=== PATIENT | male | born 1965 | race American Indian/Alaskan Native ===

== ENCOUNTER 2018-07-11 21:44 | Inpatient (IN) | payer OTHER, MEDICAID ==
[2018-07-11] MEDS ORDERED: Sodium Chloride 0.9% 1,000 ML IV STA (22:01)
--- NOTE | 2018-07-11 22:05 | ED PDOC ---
Arrival/HPI - General Time Seen by Provider: 07/11/18 21:51 Historian: Patient - History of Present Illness Narrative History of Present Illness (Text): 07/11/18 21:59 52 year old male, whose past medical history includes hypertension, presents to the emergency department complaining of dizziness, headache, and near syncopal episodes, this morning. Patient informs of intermittent dizziness all day. Patient states he took his hypertension medication which did not help. Patient states he ate tonight and vomited. Patient informs he feels weak and not well. Patient denies any abdominal pain, diarrhea, fever, chills, chest pain, shortness of breath, back pain, neck pain, or any other complaints. Time/Duration: Prior to Arrival, 24 hours Symptom Onset: Gradual Symptom Course: Unchanged Activities at Onset: Light Context: Home Past Medical History - Provider Review Nursing Documentation Reviewed: Yes - Infectious Disease Hx of Infectious Diseases: None - Tetanus Immunization Tetanus Immunization: Unknown - Pulmonary Hx Sleep Apnea: Yes - Psychiatric Hx Substance Use: No - Anesthesia Hx Anesthesia: No Family/Social History Family/Social History: No Known Family HX Smoking Status: Never Smoked Hx Alcohol Use: No Hx Substance Use: No Allergies/Home Meds Allergies/Adverse Reactions: Allergies No Known Allergies Allergy (Verified 08/30/15 22:03) Review of Systems - Physician Review All systems were reviewed & negative as marked: Yes - Review of Systems Constitutional: absent: Fevers, Night Sweats Respiratory: absent: SOB Cardiovascular: absent: Chest Pain Gastrointestinal: Nausea, Vomiting. absent: Abdominal Pain, Diarrhea Musculoskeletal: absent: Back Pain, Neck Pain Neurological: Headache, Dizziness Physical Exam Vital Signs Reviewed: Yes Temperature: Afebrile Blood Pressure: Normal Pulse: Regular Respiratory Rate: Normal Appearance: Positive for: Well-Appearing, Non-Toxic, Comfortable Pain Distress: None Mental Status: Positive for: Alert and Oriented X 3 - Systems Exam Head: Present: Atraumatic, Normocephalic Pupils: Present: PERRL Extroacular Muscles: Present: EOMI Conjunctiva: Present: Normal Ears: Present: NORMAL TM Mouth: Present: Moist Mucous Membranes Pharnyx: Present: Normal Neck: Present: Normal Range of Motion Respiratory/Chest: Present: Clear to Auscultation, Good Air Exchange. No: Respiratory Distress, Accessory Muscle Use Cardiovascular: Present: Regular Rate and Rhythm, Normal S1, S2. No: Murmurs Abdomen: No: Tenderness, Distention, Peritoneal Signs Back: Present: Normal Inspection Upper Extremity: Present: Normal Inspection. No: Cyanosis, Edema Lower Extremity: Present: Normal Inspection. No: Edema Neurological: Present: GCS=15, CN II-XII Intact, Speech Normal, Motor Func Grossly Intact, Normal Sensory Function Skin: Present: Warm, Dry, Normal Color. No: Rashes Psychiatric: Present: Alert, Oriented x 3, Normal Insight, Normal Concentration Medical Decision Making ED Course and Treatment: 07/11/18 22:07 Impression: 52 year old male presents with dizziness and vomiting Plan: -- CT Head -- EKG -- CMP, Lipase, Cardiac iso -- CBC, Prothrombin -- Chest X-ray -- Pepcid -- Zofran -- Reassess and disposition Prior Visits: Notes and results from previous visits were reviewed. Progress Notes: 07/11/18 22:20 EKG reviewed by me, shows: Normal sinus rhythm @ 63bpm LVH, Non-specific T-wave changes. 07/11/18 23:29 Chest X-ray reviewed by me, shows: No acute process 07/11/18 23:44 CT Head without Intravenous Contrast. CLINICAL HISTORY: HEADACHE - DIZZY TECHNIQUE: Axial computed tomography images of the head/brain without intravenous contrast. 1045.36 mGy-cm COMPARISON: None provided. FINDINGS: BRAIN There are bilateral basal ganglia calcifications. No evidence for acute intracranial hemorrhage. VENTRICLES: There is asymmetry of the frontal horns of the lateral ventricles. While this may be a normal variant, it is difficult to exclude a small underlying mass in this region. Please correlate clinically and if indicated this could be further evaluated with contrast enhanced MRI. ORBITS: The orbits are unremarkable. SINUSES AND MASTOIDS: The paranasal sinuses and mastoid air cells are clear. BONES: No fracture. SOFT TISSUES: Unremarkable. MISCELLANEOUS: No evidence for acute territorial infarction. IMPRESSION: 1. There is asymmetry of the frontal horns of the lateral ventricles. While this may be a normal variant, it is difficult to exclude a small underlying mass in this region. Please correlate clinically and if indicated this could be further evaluated with contrast enhanced MRI. 2. No evidence for acute territorial infarction. 3. No evidence for acute intracranial hemorrhage. 07/12/18 00:[address] Cruz who requests Dr Nicole on consult, and requests patient undergo MRI with contrast in the morning, as suggested by radiologist. - Scribe Statement The provider has reviewed the documentation as recorded by the Scribe Feroz Pacheco Provider Scribe Attestation: All medical record entries made by the Scribe were at my direction and personally dictated by me. I have reviewed the chart and agree that the record accurately reflects my personal performance of the history, physical exam, medical decision making, and the department course for this patient. I have also personally directed, reviewed, and agree with the discharge instructions and disposition. Disposition/Present on Arrival - Present on Arrival Any Indicators Present on Arrival: No History of DVT/PE: No History of Uncontrolled Diabetes: No Urinary Catheter: No History of Decub. Ulcer: No History Surgical Site Infection Following: None - Disposition Have Diagnosis and Disposition been Completed?: Yes Diagnosis: Near syncope, Dizziness Disposition: HOSPITALIZED Disposition Time: 00:10 Patient Problems: Current Active Problems Problem Status Onset Dizziness Acute Near syncope Acute Condition: STABLE
[2018-07-11 22:06] VITALS: BMI 32.5
[2018-07-11 22:23] LABS: HEMOGLOBIN 15.3 g/dL (14.0-18.0); MEAN CELL VOLUME 91.4 fl (80.0-105.0); MEAN CORPUSCULAR HEMOGLOBIN 31.5 pg (25.0-35.0); MEAN CORPUSCULAR HGB CONC 34.5 g/dl (31.0-37.0); MEAN PLATELET VOLUME 10.2 fl (7.0-11.0); RBC 4.86 10^6/uL (3.5-6.1); RED CELL DISTRIBUTION WIDTH 13.6 % (11.5-14.5); WHITE BLOOD COUNT 9.5 10^3/uL (4.5-11.0)
[2018-07-11 22:33] LABS: ALBUMIN 4.6 g/dL (3.0-4.8); ALT/SGPT 42 U/L (7-56); AST/SGOT 36 U/L (17-59); BLOOD UREA NITROGEN 9 mg/dL (7-21); CALCIUM 9.7 mg/dL (8.4-10.5); GFR NON-AFRICAN AMERICAN > 60; INR 1.06; LIPASE 61 U/L (23-300); PROTHROMBIN TIME 11.8 SECONDS (9.4-12.5)
[2018-07-11 22:44] LABS: TROPONIN I < 0.01 ng/mL
[2018-07-11] MEDS ORDERED: Potassium Chloride 20 mEq ER Tab PO STA (23:48)
[2018-07-12] MEDS ORDERED: Sodium Chloride 0.9% 1,000 ML IV STA (00:03)
[2018-07-12] MEDS ORDERED: Influenza Vaccine 60 mcg/0.5 mL SYR (4YR UP) IM ONE (02:05)
[2018-07-12 07:14] LABS: TROPONIN I < 0.01 ng/mL
--- NOTE | 2018-07-12 09:22 | RAD ---
Date of service: 07/11/2018 HISTORY: dizzy COMPARISON: No prior. FINDINGS: LUNGS: Poor inspiration with low lung volumes, crowded bronchovascular markings and mild bibasilar atelectasis. PLEURA: No significant pleural effusion identified, no pneumothorax apparent. CARDIOVASCULAR: No aortic atherosclerotic calcification present. Heart appears enlarged. No pulmonary vascular congestion. OSSEOUS STRUCTURES: No significant abnormalities. VISUALIZED UPPER ABDOMEN: Normal. OTHER FINDINGS: None. IMPRESSION: Poor inspiration with low lung volumes, crowded bronchovascular markings and mild bibasilar atelectasis.
--- NOTE | 2018-07-12 09:23 | CT ---
Date of service: 07/11/2018 PROCEDURE: CT HEAD WITHOUT CONTRAST. HISTORY: headache/dizzy COMPARISON: None available. TECHNIQUE: Axial computed tomography images were obtained through the head/brain without intravenous contrast. Radiation dose: Total exam DLP = 1045.36 mGy-cm. This CT exam was performed using one or more of the following dose reduction techniques: Automated exposure control, adjustment of the mA and/or kV according to patient size, and/or use of iterative reconstruction technique. FINDINGS: HEMORRHAGE: No intracranial hemorrhage. BRAIN: No mass effect or edema. No atrophy or chronic microvascular ischemic changes. VENTRICLES: Unremarkable. No hydrocephalus. CALVARIUM: Unremarkable. PARANASAL SINUSES: Unremarkable as visualized. No significant inflammatory changes. MASTOID AIR CELLS: Unremarkable as visualized. No inflammatory changes. OTHER FINDINGS: None. IMPRESSION: Normal CT of the Head.
--- NOTE | 2018-07-12 11:29 | CARD ---
APPROVED REPORT Date of service: 07/11/2018 EKG Measurement Heart [id number] <Conclusion> Normal sinus rhythm Possible Left atrial enlargement RSR' or QR pattern in V1. Left ventricular hypertrophy ST-T Changes.
[2018-07-12] MEDS ORDERED: Potassium Chl 20mEq & D5W 1,000 ML IV SCH (20:45)
--- NOTE | 2018-07-12 20:56 | US ---
PROCEDURE: Bilateral carotid artery duplex ultrasound HISTORY: Carotid stenosis PHYSICIAN(S): Feroz Avila MD. TECHNIQUE: Duplex sonography and color-flow Doppler were used to evaluate the carotid bifurcations and limited segments of the vertebral arteries bilaterally. FINDINGS: There is mild smooth hypoechoic plaque noted at the carotid bifurcations bilaterally. The peak systolic velocity in the proximal right internal carotid artery is 66 cm/sec. This corresponds to a 20 to 39% proximal right ICA stenosis. Normal systolic velocities are noted in the proximal right external carotid artery. There is antegrade flow in the right vertebral artery. The peak systolic velocity in the proximal left internal carotid artery is 72 cm/sec. This corresponds to a 20 to 39% proximal left ICA stenosis. Normal systolic velocities are noted in the proximal left external carotid artery. There is antegrade flow in the left vertebral artery. IMPRESSION: 1. Bilateral 20-39% proximal ICA stenoses. 2. Antegrade flow in both vertebral arteries.
[2018-07-12] MEDS ORDERED: Potassium Chloride 20 mEq 100 ML IV ONE (21:00)
[2018-07-12 21:16] LABS: HDL CHOLESTEROL 48 mg/dL (29-60)
[2018-07-12 21:23] LABS: IRON 97 ug/dL (45-180)
[2018-07-12 21:27] LABS: LDL CHOLESTEROL 121 mg/dL (0-129)
[2018-07-12 21:28] LABS: TROPONIN I < 0.01 ng/mL
[2018-07-12] MEDS: Dextrose 5%/0.9% NS 1,000 ML IV SCH (21:42)
[2018-07-12 21:45] LABS: % IRON SATURATION 75 % (20-55); TOTAL IRON BINDING CAPACITY 130 ug/dL (261-462)
--- NOTE | 2018-07-12 23:14 | CON ---
DATE: 07/12/2018 HISTORY OF PRESENT ILLNESS: This is a 52-year-old black male with past medical history of hypertension and came to the emergency room with dizziness, headache, and syncopal episode, yesterday had intermittently feeling dizzy all day. The patient has vomited and now this morning he took some clear liquid and also again vomited and also felt weak and no fever, no abdominal pain, and no shortness of breath. PAST MEDICAL HISTORY: Not significant. ALLERGIES: NO KNOWN DRUG ALLERGY. SOCIAL HISTORY: Does not smoke and does not drink. REVIEW OF SYSTEMS: A 10-point review of systems was negative except headache and dizziness. PHYSICAL EXAMINATION: HEENT: Normocephalic and atraumatic. NECK: Supple. NEUROLOGIC: Alert, awake, and oriented x3. No aphasia. Cranial nerves II through XII were tested. Pupils reactive. EOMs intact. Visual field full. No facial asymmetry. Tongue midline. Motor examination moves all the extremities equally and spontaneously. Deep tendon reflexes 1. Plantars downgoing. Sensory appears intact. Cerebellar gait deferred. IMPRESSION: Syncope and vertigo, possibly benign positional. PLAN: We will do the MRI of the head and continue present management. CAT scan of the head was done, which was reported negative. We will follow up. Amarjit Nicole MD
[2018-07-13 00:09] LABS: URINE BILIRUBIN NEGATIVE (NEGATIVE); URINE BLOOD NEGATIVE (NEGATIVE); URINE GLUCOSE (UA) NEGATIVE (NEGATIVE); URINE LEUKOCYTE ESTERASE NEGATIVE Leu/uL (NEGATIVE); URINE PROTEIN TRACE mg/dL (<30 mg/dL); URINE UROBILINOGEN 0.2 E.U./dL (<1 E.U./dL)
[2018-07-13 00:12] LABS: URINE APPEARANCE CLEAR (CLEAR); URINE COLOR YELLOW (YELLOW)
[2018-07-13 01:07] LABS: URINE EPITHELIAL CELLS 0 - 2 /hpf (0-5); URINE WBC 0 - 2 /hpf (0-6)
[2018-07-13 01:08] LABS: URINE BACTERIA FEW /hpf
--- NOTE | 2018-07-13 04:27 | HP ---
DATE OF EXAM: <> CHIEF COMPLAINT: Dizziness, headache, near syncope. HISTORY OF PRESENT ILLNESS: Mr. Kathy Acosta is a 52-year-old male with past medical history of hypertension, came to the emergency department complaining of dizziness, headache, near syncopal episode. The patient inform of intermittent dizziness all days. The patient states that today he took his hypertension medication which did not help. The patient states that he ate tonight and vomited, feeling tired. Feeling nauseous and vomitus. No fever. No chills. No hematuria. No hematochezia. All this symptoms was prior to arrival. PAST MEDICAL HISTORY: Sleep apnea, hypertension. FAMILY HISTORY: Father and mother, noncontributory. HABITS: Never smoked. No drug. No ethanol. ALLERGIES: THE PATIENT IS NOT ALLERGIC WITH ANY MEDICATIONS. REVIEW OF SYSTEMS: The patient was seen and examined at the bedside, looking comfortable. No fever. No chills. No hematuria. No hematochezia. Having headache. No shortness of breath at this moment. No night sweats. No chest pain. Feeling nauseous and vomiting. No diarrhea. No back pain. Having headache and dizziness. PHYSICAL EXAMINATION VITAL SIGNS: Temperature 97.5, pulse 68, blood pressure 159/96, respiratory rate 20. HEENT: Head is normocephalic, atraumatic. Eyes; PERRLA. Extraocular muscles intact. Conjunctivae clear. Nose patent. Mucous membranes moist. NECK: Supple. No carotid bruits. No JVD. No thyromegaly. CHEST: Bilateral symmetrical. HEART: S1, S2 positive. LUNGS: Clear to auscultation. ABDOMEN: Soft. Bowel sounds present. No organomegaly. EXTREMITIES: No edema. No cyanosis. NEUROLOGIC: The patient awake, alert, moving all four extremities. No focal deficits. LABORATORY DATA: White blood cell 6.5, hemoglobin 15.3, hematocrit 44.4, platelets 259. Sodium 140, potassium 3.3, BUN 9, creatinine 0.9, random glucose 159. ASSESSMENT AND PLAN: Mr. Kathy Acosta is a 52-year-old male with hypokalemia replaced, but still nauseous and vomiting. We will give him some IV potassium. Hyperglycemia, with headache and dizziness. Doppler of the neck, results are pending. Chest x-ray, poor inspiration with lung volumes of crowded bronchovascular marking and marked bibasilar atelectasis. Did CAT scan of the head last night. Today ordered MRI of the head without contrast. CAT scan of the head is normal as per radiologist. Neurology consult called with Dr. Nicole, started the patient on Antivert. Now, the patient was on clear liquid diet, but still today vomiting, nauseous, made the patient n.p.o., started on IV fluid. ENT consult called with Dr. Lorena Eckert. The patient has sleep apnea, will call pulmonary consult. Getting Zofran, Pepcid, aspirin. Potassium replaced. GI and DVT prophylaxis. Repeat labs. Antivert started. We will followup. Clarisa Cruz MD MTDD
[2018-07-13 07:25] LABS: HEMOGLOBIN 15.3 g/dL (14.0-18.0); MEAN CELL VOLUME 92.2 fl (80.0-105.0); MEAN CORPUSCULAR HEMOGLOBIN 31.2 pg (25.0-35.0); MEAN CORPUSCULAR HGB CONC 33.8 g/dl (31.0-37.0); MEAN PLATELET VOLUME 10.4 fl (7.0-11.0); RBC 4.9 10^6/uL (3.5-6.1); RED CELL DISTRIBUTION WIDTH 13.9 % (11.5-14.5); WHITE BLOOD COUNT 9.8 10^3/uL (4.5-11.0)
[2018-07-13 07:46] LABS: BLOOD UREA NITROGEN 13 mg/dL (7-21); CALCIUM 9.3 mg/dL (8.4-10.5); GFR NON-AFRICAN AMERICAN > 60
--- NOTE | 2018-07-13 11:41 | CP.PCM.CON ---
<Jan Estrada - Last Filed: 07/13/18 14:52> History of Present Illness - History of Present Illness History of Present Illness: PGY-4 GI fellow consult note Patient is a 52-year-old black male with a history of hypertension, VONNIE, reflux (on when necessary OTC medications only) presenting with lightheadedness and nausea/vomiting. He states around 07/11/18 he began to feel dizziness, lig htheaded feeling like the room spinning. states symptoms are worse when he moved his head from side to side; symptoms perhaps better when he closes his eyes. He states he took his blood pressure medications with relief of his symptoms. Later that day is he ate dinner for 10-15 minutes later he had nausea vomiting consisting of his by mouth intake. He denied any bloody or bilious emesis. He wonders if some salad that he ate may have made him sick. since admission, symptoms have persisted to the point that he has been unable to keep liquid diet down. He denied any fevers/chills, change in diet, lelia food consumption, recent travel, antibiotic use,abdominal pain, weight loss, dysphagia, melena, hematochezia.states he had an EGD and colonoscopy about 5 years ago at the [facility] and states that results were unremarkable. 12 point ROS negative other than stated above MHX: See above Surgical history: cyst removal Medications: Reviewed in chart Family history: Denied family history of GI problems Social history: denied 3 Allergies: No known drug allergies Past Patient History - Infectious Disease Hx of Infectious Diseases: None - Tetanus Immunizations Tetanus Immunization: Unknown - Past Social History Smoking Status: Never Smoked - CARDIAC Hx Cardiac Disorders: No Hx Angina: No Hx Cardia Arrhythmia: No Hx Circulatory Problems: No Hx Congestive Heart Failure: No Hx Heart Murmur: No Hx Heart Transplant: No Hx Hypercholesterolemia: No Hx Hypertension: Yes Hx Internal Defibrillator: No Hx Mitral Valve Prolapse: No Hx Pacemaker: No Hx Peripheral Edema: No Hx Peripheral Vascular Disease: No - PULMONARY Hx Sleep Apnea: Yes - MUSCULOSKELETAL/RHEUMATOLOGICAL Hx Falls: No - PSYCHIATRIC Hx Substance Use: No - SURGICAL HISTORY Hx Cardiac Catheterization: No Hx Coronary Stent: No - ANESTHESIA Hx Anesthesia: No Meds Allergies/Adverse Reactions: Allergies Allergy/AdvReac Type Severity Reaction Status Date / Time No Known Allergies Allergy Verified 08/30/15 22:03 - Medications Medications: Current Medications Aspirin (Ecotrin) 81 mg PO DAILY [facility] Last Admin: 07/13/18 09:16 Dose: 81 mg Famotidine (Pepcid) 40 mg PO HS [facility] Last Admin: 07/12/18 21:11 Dose: 40 mg Hydrochlorothiazide (Microzide) 12.5 mg PO DAILY [facility] Last Admin: 07/13/18 09:16 Dose: 12.5 mg Dextrose/Sodium Chloride (Dextrose 5%/0.9% Ns 1000 Ml) 1,000 mls @ 50 mls/hr IV .Q20H [facility] Last Admin: 07/12/18 21:42 Dose: 50 mls/hr Losartan Potassium (Cozaar) 50 mg PO DAILY [facility] Last Admin: 07/13/18 09:16 Dose: 50 mg Meclizine HCl (Antivert) 25 mg PO TID [facility] Last Admin: 07/13/18 09:15 Dose: 25 mg Ondansetron HCl (Zofran Inj) 4 mg IVP Q6 PRN PRN Reason: Nausea/Vomiting Last Admin: 07/13/18 09:16 Dose: 4 mg Physical Exam - Constitutional Appears: Well, No Acute Distress Additional comments: talking with eyes closed most of the time - Head Exam Head Exam: ATRAUMATIC, NORMAL INSPECTION - Eye Exam Eye Exam: EOMI. absent: Scleral icterus - ENT Exam ENT Exam: Mucous Membranes Dry. absent: Mucous Membranes Moist - Respiratory Exam Respiratory Exam: NORMAL BREATHING PATTERN. absent: Accessory Muscle Use, Respiratory Distress - Cardiovascular Exam Cardiovascular Exam: REGULAR RHYTHM, RRR - GI/Abdominal Exam GI & Abdominal Exam: Normal Bowel Sounds, Soft. absent: Bruit, Diminished Bowel Sounds, Distended, Firm, Guarding, Hernia, Mass, Organomegaly, Pulsatile Mass, Rebound, Rigid, Tenderness - Rectal Exam Rectal Exam: Deferred - Extremities Exam Extremities exam: Positive for: normal inspection. Negative for: pedal edema - Neurological Exam Neurological exam: Alert, Oriented x3 - Skin Skin Exam: Normal Color, Warm Results - Vital Signs Recent Vital Signs: Last Vital Signs Temp 98 F 07/13/18 06:00 Pulse 66 07/13/18 09:16 Resp 22 07/13/18 06:00 BP 143/99 H 07/13/18 09:16 Pulse Ox 99 07/13/18 06:00 - Labs Result Diagrams: 07/13/18 06:00 02/02/19 06:00 Labs: Laboratory Results - last 24 hr 07/12/18 07/12/18 07/12/18 21:00 21:00 23:30 WBC RBC Hgb Hct MCV MCH MCHC RDW Plt Count MPV Sodium Potassium Chloride Carbon Dioxide Anion Gap BUN Creatinine Est GFR ( Amer) Est GFR (Non-Af Amer) Random Glucose Calcium Iron 97 TIBC 130 L % Saturation 75 H Lactate Dehydrogenase 573 Total Creatine Kinase 181 Troponin I < 0.01 Triglycerides 79 Cholesterol 202 H LDL Cholesterol Direct 121 HDL Cholesterol 48 TSH 3rd Generation Urine Color Yellow Urine Appearance Clear Urine pH 7.0 Ur Specific [place] 1.020 Urine Protein Trace H Urine Glucose (UA) Negative Urine Ketones Negative Urine Blood Negative Urine Nitrate Negative Urine Bilirubin Negative Urine Urobilinogen 0.2 Ur Leukocyte Esterase Negative Urine RBC None Urine WBC 0 - 2 Ur Epithelial Cells 0 - 2 Urine Bacteria Few 07/13/18 07/13/18 07/13/18 06:00 06:00 06:00 WBC 9.8 RBC 4.90 Hgb 15.3 Hct 45.2 MCV 92.2 MCH 31.2 MCHC 33.8 RDW 13.9 Plt Count 261 MPV 10.4 Sodium 140 Potassium 3.6 Chloride 106 Carbon Dioxide 29 Anion Gap 9 L BUN 13 Creatinine 1.0 Est GFR ( Amer) > 60 Est GFR (Non-Af Amer) > 60 Random Glucose 106 Calcium 9.3 Iron TIBC % Saturation Lactate Dehydrogenase Total Creatine Kinase Troponin I Triglycerides Cholesterol LDL Cholesterol Direct HDL Cholesterol TSH 3rd Generation 0.44 L Urine Color Urine Appearance Urine pH Ur Specific [place] Urine Protein Urine Glucose (UA) Urine Ketones Urine Blood Urine Nitrate Urine Bilirubin Urine Urobilinogen Ur Leukocyte Esterase Urine RBC Urine WBC Ur Epithelial Cells Urine Bacteria Assessment & Plan - Assessment and Plan (Free Text) Assessment: 52-year-old black male with hypertension, VONNIE, GERD presenting with lig htheadedness, dizziness and nausea/vomiting. #Nausea/vomiting: Nonbloody nonbilious. Suspect related to vertiginous symptoms. Symptoms are 10-15 minutes after by mouth ingestion and food and liquids pass without issue. However, should symptoms persist after neurologic evaluation and intervention, would perhaps benefit from endoscopic evaluation. #Endoscopy history: Patient reports EGD/CSPY about 5 years ago with unremarkable results. Plan: Agree with Neurology consult Follow-up brain MRI Supportive care Should symptoms persist despite Neuro eval, will consider endoscopic evaluation -PPI Pt discussed with Dr. Mendoza; please see attestation for further recs/changes. <Bakari Mendoza V - Last Filed: 07/13/18 23:48> Meds - Medications Medications: Current Medications Aspirin (Ecotrin) 81 mg PO DAILY [facility] Last Admin: 07/13/18 09:16 Dose: 81 mg Diazepam (Valium) 5 mg PO TID PRN; Protocol PRN Reason: Dizziness Famotidine (Pepcid) 40 mg PO HS [facility] Last Admin: 07/13/18 21:46 Dose: 40 mg Hydrochlorothiazide (Microzide) 12.5 mg PO DAILY [facility] Last Admin: 07/13/18 09:16 Dose: 12.5 mg Dextrose/Sodium Chloride (Dextrose 5%/0.9% Ns 1000 Ml) 1,000 mls @ 50 mls/hr IV .Q20H [facility] Last Admin: 07/13/18 17:17 Dose: 50 mls/hr Losartan Potassium (Cozaar) 50 mg PO DAILY [facility] Last Admin: 07/13/18 09:16 Dose: 50 mg Meclizine HCl (Antivert) 25 mg PO TID [facility] Last Admin: 07/13/18 17:06 Dose: 25 mg Ondansetron HCl (Zofran Inj) 4 mg IVP Q6 PRN PRN Reason: Nausea/Vomiting Last Admin: 07/13/18 09:16 Dose: 4 mg Pantoprazole Sodium (Protonix Inj) 40 mg IVP DAILY [facility] Last Admin: 07/13/18 17:06 Dose: 40 mg Prednisone (Prednisone Tab) 20 mg PO TID [facility] Stop: 07/16/18 16:00 Last Admin: 07/13/18 17:06 Dose: 20 mg Results - Vital Signs Recent Vital Signs: Last Vital Signs Temp 98.7 F 07/13/18 18:00 Pulse 62 07/13/18 22:00 Resp 20 07/13/18 18:00 BP 143/98 H 07/13/18 18:00 Pulse Ox 99 07/13/18 06:00 - Labs Result Diagrams: 07/13/18 06:00 07/13/18 06:00 Labs: Laboratory Results - last 24 hr 07/12/18 07/12/1819 21:00 23:30 06:00 WBC 9.8 RBC 4.90 Hgb 15.3 Hct 45.2 MCV 92.2 MCH 31.2 MCHC 33.8 RDW 13.9 Plt Count 261 MPV 10.4 Sodium Potassium Chloride Carbon Dioxide Anion Gap BUN Creatinine Est GFR ( Amer) Est GFR (Non-Af Amer) Random Glucose Calcium Vitamin B12 553 Folate > 20.0 TSH 3rd Generation Urine Color Yellow Urine Appearance Clear Urine pH 7.0 Ur Specific [place] 1.020 Urine Protein Trace H Urine Glucose (UA) Negative Urine Ketones Negative Urine Blood Negative Urine Nitrate Negative Urine Bilirubin Negative Urine Urobilinogen 0.2 Ur Leukocyte Esterase Negative Urine RBC None Urine WBC 0 - 2 Ur Epithelial Cells 0 - 2 Urine Bacteria Few 07/13/18 07/13/18 06:00 06:00 WBC RBC Hgb Hct MCV MCH MCHC RDW Plt Count MPV Sodium 140 Potassium 3.6 Chloride 106 Carbon Dioxide 29 Anion Gap 9 L BUN 13 Creatinine 1.0 Est GFR ( Amer) > 60 Est GFR (Non-Af Amer) > 60 Random Glucose 106 Calcium 9.3 Vitamin B12 Folate TSH 3rd Generation 0.44 L Urine Color Urine Appearance Urine pH Ur Specific [place] Urine Protein Urine Glucose (UA) Urine Ketones Urine Blood Urine Nitrate Urine Bilirubin Urine Urobilinogen Ur Leukocyte Esterase Urine RBC Urine WBC Ur Epithelial Cells Urine Bacteria Attending/Attestation - Attestation I have personally seen and examined this patient.: Yes I have fully participated in the care of the patient.: Yes I have reviewed all pertinent clinical information: Yes Notes (Text): This is an addendum to GI consult report dictated by the GI Fellow.The patient was seen and examined earlier. Medical records, lab studies, imagings were reviewed. Last 24 hours events reviewed. Agreed with the above treatment plan as outlined in GI Fellow 's notes with the addition of the following 07/13/18 23:48
[2018-07-13 13:17] LABS: FOLATE > 20.0 ng/mL
--- NOTE | 2018-07-13 14:14 | CP.PCM.CON ---
History of Present Illness - History of Present Illness History of Present Illness: This is a 52 yo male with history of sudden onset of dizziness 07/11/18. Symptoms associated with nausea / vomiting. Patient described dizziness as room spinning. Patient took his blood pressure medicine without relief. Symptoms progressed and he was brought to the ER. Patient states no prior history of similar symptoms. Admits to recent URI prior to onset of symptoms Denies hearing loss / tinnitus / otalgia or otorrhea. Admits to headache . Symptoms are increased with any head movement. Patient states today there is mild improvement. Past Patient History - Infectious Disease Hx of Infectious Diseases: None - Tetanus Immunizations Tetanus Immunization: Unknown - Past Social History Smoking Status: Never Smoked - CARDIAC Hx Cardiac Disorders: No Hx Angina: No Hx Cardia Arrhythmia: No Hx Circulatory Problems: No Hx Congestive Heart Failure: No Hx Heart Murmur: No Hx Heart Transplant: No Hx Hypercholesterolemia: No Hx Hypertension: Yes Hx Internal Defibrillator: No Hx Mitral Valve Prolapse: No Hx Pacemaker: No Hx Peripheral Edema: No Hx Peripheral Vascular Disease: No - PULMONARY Hx Sleep Apnea: Yes - MUSCULOSKELETAL/RHEUMATOLOGICAL Hx Falls: No - PSYCHIATRIC Hx Substance Use: No - SURGICAL HISTORY Hx Cardiac Catheterization: No Hx Coronary Stent: No - ANESTHESIA Hx Anesthesia: No Meds Allergies/Adverse Reactions: Allergies Allergy/AdvReac Type Severity Reaction Status Date / Time No Known Allergies Allergy Verified 08/30/15 22:03 - Medications Medications: Current Medications Aspirin (Ecotrin) 81 mg PO DAILY [facility] Last Admin: 07/13/18 09:16 Dose: 81 mg Famotidine (Pepcid) 40 mg PO HS [facility] Last Admin: 07/12/18 21:11 Dose: 40 mg Hydrochlorothiazide (Microzide) 12.5 mg PO DAILY [facility] Last Admin: 07/13/18 09:16 Dose: 12.5 mg Dextrose/Sodium Chloride (Dextrose 5%/0.9% Ns 1000 Ml) 1,000 mls @ 50 mls/hr IV .Q20H [facility] Last Admin: 07/12/18 21:42 Dose: 50 mls/hr Losartan Potassium (Cozaar) 50 mg PO DAILY [facility] Last Admin: 07/13/18 09:16 Dose: 50 mg Meclizine HCl (Antivert) 25 mg PO TID [facility] Last Admin: 07/13/18 09:15 Dose: 25 mg Ondansetron HCl (Zofran Inj) 4 mg IVP Q6 PRN PRN Reason: Nausea/Vomiting Last Admin: 07/13/18 09:16 Dose: 4 mg Physical Exam - Constitutional Appears: Well, Non-toxic, No Acute Distress - Head Exam Head Exam: ATRAUMATIC, NORMAL INSPECTION, NORMOCEPHALIC - Eye Exam Eye Exam: EOMI, Normal appearance, PERRL Additional comments: nystagmus noted with lateral gaze - ENT Exam Additional comments: Ears - EAC / TM wnl Nose - mucosa dry / erythematous Oral cavity - tongue enlarged - narrow O/P inlet - Neck Exam Neck exam: Positive for: Full Rom, Normal Inspection - Respiratory Exam Respiratory Exam: NORMAL BREATHING PATTERN - Extremities Exam Extremities exam: Positive for: normal inspection - Neurological Exam Neurological exam: Alert, CN II-XII Intact, Oriented x3 - Psychiatric Exam Psychiatric exam: Normal Mood - Skin Skin Exam: Dry, Intact, Normal Color Results - Vital Signs Recent Vital Signs: Last Vital Signs Temp 98 F 07/13/18 06:00 Pulse 66 07/13/18 09:16 Resp 22 07/13/18 06:00 BP 143/99 H 07/13/18 09:16 Pulse Ox 99 07/13/18 06:00 - Labs Result Diagrams: 07/13/18 06:00 07/13/18 06:00 Labs: Laboratory Results - last 24 hr 07/12/18 07/12/18 07/12/18 21:00 21:00 23:30 WBC RBC Hgb Hct MCV MCH MCHC RDW Plt Count MPV Sodium Potassium Chloride Carbon Dioxide Anion Gap BUN Creatinine Est GFR ( Amer) Est GFR (Non-Af Amer) Random Glucose Calcium Iron 97 TIBC 130 L % Saturation 75 H Lactate Dehydrogenase 573 Total Creatine Kinase 181 Troponin I < 0.01 Triglycerides 79 Cholesterol 202 H LDL Cholesterol Direct 121 HDL Cholesterol 48 TSH 3rd Generation Urine Color Yellow Urine Appearance Clear Urine pH 7.0 Ur Specific [place] 1.020 Urine Protein Trace H Urine Glucose (UA) Negative Urine Ketones Negative Urine Blood Negative Urine Nitrate Negative Urine Bilirubin Negative Urine Urobilinogen 0.2 Ur Leukocyte Esterase Negative Urine RBC None Urine WBC 0 - 2 Ur Epithelial Cells 0 - 2 Urine Bacteria Few 07/13/18 07/13/18 07/13/18 06:00 06:00 06:00 WBC 9.8 RBC 4.90 Hgb 15.3 Hct 45.2 MCV 92.2 MCH 31.2 MCHC 33.8 RDW 13.9 Plt Count 261 MPV 10.4 Sodium 140 Potassium 3.6 Chloride 106 Carbon Dioxide 29 Anion Gap 9 L BUN 13 Creatinine 1.0 Est GFR ( Amer) > 60 Est GFR (Non-Af Amer) > 60 Random Glucose 106 Calcium 9.3 Iron TIBC % Saturation Lactate Dehydrogenase Total Creatine Kinase Troponin I Triglycerides Cholesterol LDL Cholesterol Direct HDL Cholesterol TSH 3rd Generation 0.44 L Urine Color Urine Appearance Urine pH Ur Specific [place] Urine Protein Urine Glucose (UA) Urine Ketones Urine Blood Urine Nitrate Urine Bilirubin Urine Urobilinogen Ur Leukocyte Esterase Urine RBC Urine WBC Ur Epithelial Cells Urine Bacteria Assessment & Plan (1) Acute vestibular neuronitis of both ears Status: Acute (2) VONNIE (obstructive sleep apnea) Status: Acute (3) HTN (hypertension) Status: Acute (4) Dizziness Status: Acute - Assessment and Plan (Free Text) Plan: change to Valium 5mg PO TID prn begin Depomedrol 60mg IV BID x 3 days agree with prior consults - for MRI may need Audio / VNG as outpatient pending response to meds
[2018-07-13] MEDS: Dextrose 5%/0.9% NS 1,000 ML IV SCH (17:17)
--- NOTE | 2018-07-13 20:05 | CON ---
DATE OF CONSULTATION: 07/13/2018 PULMONARY CONSULTATION REFERRING PHYSICIAN: Dr. Cruz. REASON FOR CONSULTATION: Near-syncopal episode, known sleep apnea syndrome, noncompliant. HISTORY OF PRESENT ILLNESS: This is a 52-year-old gentleman with known history of hypertension, sleep apnea syndrome, did not use CPAP for almost a year or so, gained weight lately. He presented with near syncopal episode. He did take his antihypertensive medication without much help, presently lying in the bed. Family at the bedside. Admit to loud snoring, daytime sleepy and tired. No nausea, vomiting, diarrhea, leg pain, or leg swelling. PAST MEDICAL HISTORY: Hypertension, sleep apnea syndrome, obesity. SOCIAL HISTORY: Nonsmoker, nondrinker. FAMILY HISTORY: No significant cardiopulmonary disease reported. ALLERGIES: NONE KNOWN. MEDICATIONS: He is on Antivert 25 mg three times a day, Cozaar 50 mg daily, getting IV fluid D5 normal saline 50 mL/hour, Ecotrin 81 mg daily, hydrochlorothiazide 12.5 mg daily, Pepcid 40 mg daily, prednisone 20 mg three times a day, Protonix 40 mg daily, also Valium 5 mg three times a day p.r.n., Zofran p.r.n. basis. REVIEW OF SYSTEMS: No headache. No rhinitis. Admitted to have syncopal episode. Admitted to have snoring, daytime sleepiness. No chest pain. No nausea, vomiting, diarrhea, leg pain or leg swelling. PHYSICAL EXAMINATION: GENERAL: Lying in the bed, in no acute distress. VITAL SIGNS: Temperature is 98, heart rate 61, respiratory rate is 20, blood pressure 143/98, pulse ox 99% on room air. HEENT: Moist mucous membrane. Crowded airway. Mallampati score is 4. NECK: Supple. No JVD. LUNGS: Have a fair airflow with rhonchi. HEART: S1, S2. ABDOMEN: Soft, nontender, no organomegaly. EXTREMITIES: No edema. NEUROLOGICAL: Awake, alert, and follows simple commands. LABORATORY DATA: Showed hemoglobin 15.3, hematocrit 45.2, WBC 9.8, platelet is 261. INR 1.06. PTT 27. Sodium 140, potassium 3.6, chloride 106, bicarbonate 29, BUN 13, creatinine 1.0, glucose 106, calcium is 9.3. Iron is 97, TIBC 130. LDH 573. Troponin less than 0.01. Triglyceride is 79. Cholesterol is 202. Vitamin B12 of 53, folate is more than 20. TSH is 0.44. Laboratory data showed he had a CT scan of the head done, which was unremarkable. Chest x-ray done in ER shows poor inspiratory effort, low lung volume, crowded bronchovascular marking. IMPRESSION AND PLAN: Near syncopal episode, known history of sleep apnea syndrome, hypertension, noncompliant with the CPAP and blood pressure medication, has a low TSH. We will order T3, T4, and thyroid profile. Spoke to the patient and family at bedside. All their questions answered. Spoke about sleep apnea issue in relation to near syncopal episode and further cardiovascular complications. He expressed understanding. We will place him on CPAP, 8 cm, 30% oxygen, outpatient, and need a 10-day sleep study. I will need a separate study. Gastric prophylaxis, deep venous thrombosis prophylaxis. Thank you and we will follow with you. Ronnie Rodríguez MD
--- NOTE | 2018-07-13 23:41 | PN ---
DATE: 07/13/2018 SUBJECTIVE: The patient is 52-year-old male. The patient was last seen and examined at bedside on 07/13/2018. Looking comfortable and still dizziness when he is moving his head and feeling nauseous but better as compared to yesterday, seen by ENT. No hearing loss, no otalgia or otorrhea, but having headache. It is increased with movement of the head, mild improvement in symptoms. PHYSICAL EXAMINATION: VITAL SIGNS: Temperature 98, pulse 66, respiratory rate 22, blood pressure 140/90, and pulse oximetry 99%. HEENT: Head; normocephalic, atraumatic. Eyes; PERRLA. Extraocular muscles intact. Conjunctivae clear. Nose patent. Mucous membranes moist. NECK: Supple. No carotid bruits. No JVD. No thyromegaly. CHEST: Bilateral symmetrical. HEART: S1, S2 positive. LUNGS: Clear to auscultation. ABDOMEN: Soft. Bowel sounds present. No organomegaly. EXTREMITIES: No edema. No cyanosis. NEUROLOGIC: The patient awake, alert, moving all four extremities. No focal deficits. LABORATORY DATA: White blood cell 9.8, hemoglobin 15.3, hematocrit 45.2, and platelets 251. Sodium 146, potassium 3.6, BUN 15, creatinine 1, and glucose 106. ASSESSMENT AND PLAN: Mr. Kathy Acosta is a 52-year-old male with acute vestibular neuritis of both ears, obstructive sleep apnea syndrome, sleep specialist is on the case; hypertension, getting treatment; dizziness, neurologist is on the case. valium 5 mg three times a day p.r.n., Depo-Medrol 50 mg IV twice a day for three days. Magnetic resonance imaging of the head and bilateral carotid Doppler of the neck was done. The patient has history of hypertension. Nausea and vomiting is little bit better. The patient had esophagogastroduodenoscopy and colonoscopy done 5 years ago at [place], and states those were unremarkable. Seen by Gastroenterology. Neurology consult also called, having gastroesophageal reflux disease, dyspepsia and lightheadedness. May be nausea and vomiting is due to dizziness. if symptoms persist after neurologic and ears, nose and throat evaluation, then Gastroenterology thinking about endoscopy and proton pump inhibitor. Repeat laboratories. Carotid Doppler of the neck showed bilateral carotids with benign proximal internal carotid artery stenosis. Antegrade flow both vertebral arteries. Meanwhile continue treatment. Potassium was low, will be replaced with hydration. We will followup. Clarisa Cruz MD MTDDoreen
[2018-07-14 07:04] LABS: IRON 84 ug/dL (45-180)
[2018-07-14 07:14] LABS: % IRON SATURATION 29 % (20-55); TOTAL IRON BINDING CAPACITY 289 ug/dL (261-462)
[2018-07-14 07:22] LABS: FREE T4 0.87 ng/dL (0.78-2.19)
[2018-07-14 11:33] LABS: TRANSFERRIN 223.48 mg/dL (206-381)
[2018-07-14] MEDS ORDERED: Gadodiamide 287 MG/ML VIAL (15ML) IV ONE (11:51)
--- NOTE | 2018-07-14 13:45 | MRI ---
Date of service: 07/14/2018 PROCEDURE: MRI BRAIN WITH AND WITHOUT CONTRAST HISTORY: Ventricle assymetry/r/o Underlying Mass COMPARISON: None available. TECHNIQUE: Multiplanar, multisequence MR images of the brain were obtained with and without intravenous contrast enhancement. FINDINGS: Study is limited by motion artifact HEMORRHAGE: None DWI: No evidence of an acute or early subacute infarction. BRAIN PARENCHYMA: There are multiple small nonspecific nonenhancing focal areas of increased T2 signal seen scattered about subcortical and deeper white matter both cerebral hemispheres. Findings probably represent minor chronic sequela of small vessel disease. In addition, there also some very minimal slightly confluent prolonged T2 signal changes in the parent frontal horn region as well also felt to represent sequela of small vessel disease.. ENHANCEMENT: No abnormal intracranial enhancement. VENTRICLES: Unremarkable. No hydrocephalus. CRANIUM: Unremarkable. ORBITS: Grossly unremarkable. PARANASAL SINUSES/MASTOIDS: Clear VASCULAR SYSTEM: Visualized major vascular flow voids at skull base patent. OTHER FINDINGS: None . IMPRESSION: Limited motion degraded study. There are multiple small nonspecific nonenhancing focal areas of increased T2 signal seen scattered about subcortical and deeper white matter both cerebral hemispheres. Findings probably represent minor chronic sequela of small vessel disease. In addition, there also some very minimal slightly confluent prolonged T2 signal changes in the parent frontal horn region as well also felt to represent sequela of small vessel disease..
[2018-07-14] MEDS: Dextrose 5%/0.9% NS 1,000 ML IV SCH ×2 (14:00→17:22)
--- NOTE | 2018-07-14 19:36 | PN ---
DATE: 07/14/2018 REFERRING PHYSICIAN: Clarisa Cruz MD SUBJECTIVE: He is lying in the bed, head at 45 degrees. Night was unremarkable, tolerated CPAP well. Still has vertigo. No nausea, no vomiting, no diarrhea, no leg pain, or leg swelling. OBJECTIVE: VITAL SIGNS: Temperature is 98, heart rate is 59, respiratory rate is 18, blood pressure 137/91, pulse ox 100% on a CPAP this morning. HEENT: Moist mucous membrane. Crowded airway. Mallampati score is 4. NECK: Supple. No JVD. LUNGS: Have a fair airflow with rhonchi. HEART: S1, S2. ABDOMEN: Soft, nontender, no organomegaly. EXTREMITIES: No edema. NEUROLOGIC: Awake, alert and follows simple commands. MEDICATIONS: He is on Antivert 25 mg three times a day, Cozaar 50 mg daily, IV fluids D5 normal saline 50 mL/hour, Ecotrin 81 mg daily, hydrochlorothiazide 12.5 mg daily, Pepcid 40 mg at bedtime, prednisone 20 mg three times a day, Protonix 40 mg daily, Valium 5 mg three times a day p.r.n., Zofran p.r.n. basis. LABORATORY DATA: Reviewed shows transferrin level is 223. MRI of the brain done which shows there are multiple small nonspecific nonenhancing focal areas of increased T2 signal seen scattered about subcortical and deeper white matter, both cerebral hemispheres finding probably representing minor chronic sequelae of small vessel disease and lesion. There are some very minimal slightly confluent prolonged T2 signal changes in the frontal horn region as well felt to represent sequelae of small vessel disease. IMPRESSION AND PLAN: Near syncope, sleep apnea syndrome, hypertension, rule out stroke. Pulmonary point of view, doing okay. Continue continuous positive airway pressure. Keep head at 45 degrees. I guess being treated for vestibular type vertigo. We will have Neurology comment on the MRI finding. Fall precaution. Gastric prophylaxis, deep venous thrombosis prophylaxis. Thank you and we will follow with you. Ronnie Rodríguez MD
--- NOTE | 2018-07-15 00:56 | PN ---
DATE: 07/14/2018 SUBJECTIVE: The patient is a 52-year-old male. The patient was seen and examined at the bedside on 07/14/2018. The patient is lying down comfortably. Cough is better. Shortness of breath is better. Dizziness is better. Lightheadedness is better, but still feeling vertigo. Nausea, vomiting is better. PHYSICAL EXAMINATION VITAL SIGNS: Temperature 98, heart rate 59, respiratory rate 18, blood pressure 130/90, pulse oximetry 100% on room air. Used CPAP last night. HEENT: Head; normocephalic and atraumatic. Eyes; PERRLA. Extraocular muscles are intact. Conjunctivae clear. Nose patent. Mucous membranes moist. NECK: Supple. No carotid bruits. No JVD or thyromegaly. CHEST: Bilaterally symmetrical. HEART: S1 and S2 positive. LUNGS: Clear to auscultation. ABDOMEN: Soft. Bowel sounds present. No organomegaly. EXTREMITIES: No edema. No cyanosis. NEUROLOGIC: The patient is awake and alert. Follows simple commands. LABORATORY DATA: We do not have recent labs today, but I reviewed old labs. Transferrin is 223.48. Urine has protein. MEDICATIONS: Antivert, Cozaar, Ecotrin, hydrochlorothiazide, prednisone, Protonix, Valium, and Zofran. ASSESSMENT AND PLAN: Mr. Kathy Acosta is a 52-year-old male came with near syncope, sleep apnea syndrome, hypertension, rule out stroke, and dizziness. Using CPAP at night. He is seen by ENT. Gastric and deep venous thrombosis prophylaxis given. Reviewed the results of MRI. According to Dr. Nasim Rao, there are multiple small nonspecific nonenhancing foci area of increased T2 signal seen scattered about subcortical and deep white matter, both cerebral hemispheres, finding probably represent sequelae, small vessel disease. In addition, there are small very minimal slightly confluent prolonged T2 signal changes in the frontal horn region as well also felt they represent sequelae of the small vessel disease. We will wait from Neurology input. Neurologist saw the patient once before MRI. I want their expertise opinion after MRI. Seen by Dr. Johnson, ENT. Hypertension, dizziness, acute vestibular neuritis of both ears, getting Valium, Depo-Medrol. Need audio/VNG as outpatient as per ENT. Repeat labs. We will follow up. Clarisa Cruz MD MTDDoreen
[2018-07-15] MEDS: Pantoprazole 40 mg EC Tab PO SCH (05:44)
[2018-07-15 07:23] LABS: HEMOGLOBIN 15.5 g/dL (14.0-18.0); MEAN CORPUSCULAR HEMOGLOBIN 30.9 pg (25.0-35.0); MEAN CORPUSCULAR HGB CONC 34.4 g/dl (31.0-37.0); RBC 5.01 10^6/uL (3.5-6.1); RED CELL DISTRIBUTION WIDTH 13.3 % (11.5-14.5)
[2018-07-15 08:50] LABS: BLOOD UREA NITROGEN 15 mg/dL (7-21); CALCIUM 9.4 mg/dL (8.4-10.5); GFR NON-AFRICAN AMERICAN > 60
--- NOTE | 2018-07-15 12:48 | CP.PCM.PN ---
<Bhavana Garber - Last Filed: 07/15/18 12:44> Subjective - Date & Time of Evaluation Date of Evaluation: 07/15/18 Time of Evaluation: 12:45 - Subjective Subjective: Gastroenterology Fellow/PGY6 Progress Note Patient continues to have intermittent dizziness with note of double vision today. Denies nausea or vomiting. Tolerating liquid diet. A 12-point review of systems negative except for as above. Objective - Vital Signs/Intake and Output Vital Signs (last 24 hours): Temp Pulse Resp BP Pulse Ox 98.0 F 64 20 131/87 97 07/15/18 06:00 07/15/18 10:00 07/15/18 06:00 07/15/18 09:06 07/15/18 06:00 Intake and Output: 07/15/18 07/15/18 06:59 18:59 Intake Total 1020 Output Total 1400 Balance -380 - Medications Medications: Current Medications Aspirin (Ecotrin) 81 mg PO DAILY [facility] Last Admin: 07/15/18 09:06 Dose: 81 mg Diazepam (Valium) 5 mg PO TID PRN; Protocol PRN Reason: Dizziness Famotidine (Pepcid) 40 mg PO HS [facility] Last Admin: 07/14/18 21:38 Dose: 40 mg Hydrochlorothiazide (Microzide) 12.5 mg PO DAILY [facility] Last Admin: 07/15/18 09:06 Dose: 12.5 mg Dextrose/Sodium Chloride (Dextrose 5%/0.9% Ns 1000 Ml) 1,000 mls @ 50 mls/hr IV .Q20H [facility] Last Admin: 07/14/18 17:22 Dose: 50 mls/hr Losartan Potassium (Cozaar) 50 mg PO DAILY [facility] Last Admin: 07/15/18 09:06 Dose: 50 mg Meclizine HCl (Antivert) 25 mg PO TID [facility] Last Admin: 07/15/18 09:06 Dose: 25 mg Ondansetron HCl (Zofran Inj) 4 mg IVP Q6 PRN PRN Reason: Nausea/Vomiting Last Admin: 07/14/18 17:21 Dose: 4 mg Pantoprazole Sodium (Protonix Ec Tab) 40 mg PO 0600 [facility] Last Admin: 07/15/18 05:44 Dose: 40 mg Prednisone (Prednisone Tab) 20 mg PO TID [facility] Stop: 07/16/18 16:00 Last Admin: 07/15/18 09:06 Dose: 20 mg - Labs Labs: 07/15/18 07:10 07/15/18 06:00 PT 11.8 SECONDS (9.4-12.5) 07/11/18 22:18 INR 1.06 07/11/18 22:18 APTT 27.0 Seconds (26.9-38.3) 07/11/18 22:18 - Constitutional Appears: Non-toxic, No Acute Distress - Head Exam Head Exam: ATRAUMATIC, NORMOCEPHALIC - Eye Exam Eye Exam: EOMI, PERRL. absent: Scleral icterus Pupil Exam: PERRL. absent: Miosis, Mydriatic - ENT Exam ENT Exam: Mucous Membranes Moist, Normal Oropharynx ( ) - Neck Exam Neck Exam: Full ROM, Normal Inspection - Respiratory Exam Respiratory Exam: Clear to Ausculation Bilateral. absent: Rales, Rhonchi, Wheezes - Cardiovascular Exam Cardiovascular Exam: RRR, +S1, +S2. absent: Gallop, Rubs - GI/Abdominal Exam GI & Abdominal Exam: Soft, Normal Bowel Sounds. absent: Distended, Firm, Guarding, Rigid, Tenderness, Organomegaly, Rebound - Extremities Exam Extremities Exam: Normal Inspection. absent: Pedal Edema - Neurological Exam Neurological Exam: Alert, Awake - Psychiatric Exam Psychiatric exam: Normal Affect, Normal Mood - Skin Skin Exam: Dry, Intact, Normal Color, Warm Assessment and Plan - Assessment and Plan (Free Text) Assessment: 52 year old male with PMH of HTN, VONNIE, and GERD presenting with dizziness and vomiting. Active treatment of vertigo with ongoing neurology workup and treatment. Prior EGD/ colonoscopy five years ago endorsed to be normal. Plan: -resolved nausea/vomiting likely 2/2 vertigo -follow up neurology workup and recommendations -no indication for endoscopy at present evaluation -continue PPI ACB and anti-emetics PRN -on liquid diet, advance as tolerated -consider endoscopic evaluation if symptoms re-occur and/or unable to tolerate diet <Bakari Mendoza V - Last Filed: 07/15/18 23:55> Objective - Vital Signs/Intake and Output Vital Signs (last 24 hours): Temp Pulse Resp BP Pulse Ox 98.4 F 77 20 128/78 97 07/15/18 18:00 07/15/18 18:00 07/15/18 18:00 07/15/18 18:00 07/15/18 06:00 Intake and Output: 07/15/18 07/16/18 18:59 06:59 Intake Total 600 1500 Output Total 1050 Balance 600 450 - Medications Medications: Current Medications Diazepam (Valium) 5 mg PO TID PRN; Protocol PRN Reason: Dizziness Enoxaparin Sodium (Lovenox) 40 mg SC DAILY [facility]; Protocol Famotidine (Pepcid) 40 mg PO HS [facility] Last Admin: 07/15/18 21:06 Dose: 40 mg Hydrochlorothiazide (Microzide) 12.5 mg PO DAILY [facility] Last Admin: 07/15/18 09:06 Dose: 12.5 mg Dextrose/Sodium Chloride (Dextrose 5%/0.9% Ns 1000 Ml) 1,000 mls @ 50 mls/hr IV .Q20H [facility] Last Admin: 07/15/18 14:33 Dose: 50 mls/hr Losartan Potassium (Cozaar) 50 mg PO DAILY [facility] Last Admin: 07/15/18 09:06 Dose: 50 mg Meclizine HCl (Antivert) 25 mg PO TID [facility] Last Admin: 07/15/18 18:37 Dose: 25 mg Ondansetron HCl (Zofran Inj) 4 mg IVP Q6 PRN PRN Reason: Nausea/Vomiting Last Admin: 07/14/18 17:21 Dose: 4 mg Pantoprazole Sodium (Protonix Ec Tab) 40 mg PO 0600 [facility] Last Admin: 07/15/18 05:44 Dose: 40 mg Prednisone (Prednisone Tab) 20 mg PO TID [facility] Stop: 07/16/18 16:00 Last Admin: 07/15/18 18:37 Dose: 20 mg - Labs Labs: 07/15/18 07:10 07/15/18 06:00 PT 11.8 SECONDS (9.4-12.5) 07/11/18 22:18 INR 1.06 07/11/18 22:18 APTT 27.0 Seconds (26.9-38.3) 07/11/18 22:18 Attending/Attestation - Attestation I have personally seen and examined this patient.: Yes I have fully participated in the care of the patient.: Yes I have reviewed all pertinent clinical information, including history, physical exam and plan: Yes Notes (Text): This is an addendum to GI progress report dictated by the GI Fellow. The patient was seen and examined earlier. Medical records, lab studies, imagings were reviewed. Last 24 hours events reviewed. Agreed with the above treatment plan as outlined in GI Fellow 's notes with the addition of the following 07/15/18 23:55
--- NOTE | 2018-07-15 14:25 | PN ---
DATE: 07/15/2018 PULMONARY PROGRESS NOTE REFERRING PHYSICIAN: Clarisa Cruz MD SUBJECTIVE: The patient is sitting up in bed, head of bed elevated, reports using CPAP machine last night, states that he feels better this morning while rested, still having vertigo, headaches. No nausea, vomiting, diarrhea, leg pain or leg swelling reported. OBJECTIVE: GENERAL: No acute distress. VITAL SIGNS: Blood pressure 126/78, pulse 79, temperature 98.3, and oxygen saturation 97%. HEENT: Moist mucous membranes, crowded airway. Mallampati score is 4. NECK: Supple, no JVD. LUNGS: Fair airflow bilaterally. CARDIOVASCULAR: S1 and S2. ABDOMEN: Soft and nontender, no distention, no organomegaly. EXTREMITIES: No bilateral lower extremity edema. NEUROLOGIC: Awake and alert, verbal, follows commands. LABORATORY DATA: Reviewed. WBC 10, RBC 5.01, hemoglobin 15.5, hematocrit 45.1, platelets 263. Sodium 140, potassium 4, chloride 104, carbon dioxide 28, anion gap 12, BUN 15, creatinine 1, GFR greater than 60, random glucose 116, and calcium 9.4. MEDICATIONS: Reviewed. Aspirin 81 mg daily, dextrose 5%/0.9%, normal saline 1000 mL at 50 mL per hour, Valium 5 mg 3 times a day p.r.n., Pepcid 40 mg at bedtime, hydrochlorothiazide 12.5 mg daily, Cozaar 50 mg daily, Antivert 25 mg 3 times a day, Zofran 4 mg IV push every 6 hours p.r.n., Protonix 40 mg daily, and prednisone 20 mg 3 times a day. IMPRESSION AND PLAN: Vertigo, sleep apnea syndrome, hypertension, and gastroesophageal reflux disease. Neurology workup is presently ongoing. Continue continuous positive airway pressure use at bedtime, sleep apnea precaution, head of bed elevated at 45 degrees. We will add Lovenox for deep venous thrombosis prophylaxis, fall precautions, and gastric prophylaxis. Advance diet as tolerated. This patient is seen and examined with Dr. Rodríguez. Discussed assessment and plan as described above. This patient is seen and examined with Jazmyn Castillo, nurse practitioner. Discussed assessment and plan as described above. Thank you for this consult. We will follow with you. oJnathan Eldridge APN Ronnie Rodríguez MD [facility] # [id number] [facility]ITAL[facility]
[2018-07-15] MEDS: Dextrose 5%/0.9% NS 1,000 ML IV SCH (14:33)
--- NOTE | 2018-07-16 00:34 | PN ---
DATE: 07/15/2018 The patient was seen and examined at the bedside on 07/15/2018. SUBJECTIVE: The patient is 52-year-old male, still feeling dizzy last night, used CPAP machine and felt better but still whenever he is trying to eat something he is feeling nauseous. Headache is still there. No fever. No chills. No hematuria. No hematochezia. PHYSICAL EXAMINATION: VITAL SIGNS: Blood pressure 126/78, pulse 79, temperature 98.3, oxygen saturation 97%. HEENT: Head is normocephalic and atraumatic. Eyes; PERRLA. Extraocular muscles intact. Conjunctivae clear. Nose patent. Mucous membranes moist. NECK: Supple. No carotid bruits or thyromegaly. CHEST: Bilaterally symmetrical. HEART: S1 and S2 positive. LUNGS: Fair airflow bilaterally. ABDOMEN: Soft. No organomegaly. EXTREMITIES: Bilateral lower extremity edema. NEUROLOGIC: Awake, alert, follows simple commands. LABORATORY DATA: White blood cell 10, hemoglobin 15.5, hematocrit 45.1, and platelets 263. Sodium 140, potassium 4.0, BUN 15, and creatinine 1.0. ASSESSMENT AND PLAN: Mr. Kathy Acosta is a 52-year-old male with vertigo, sleep apnea syndrome, hypertension, and gastroesophageal reflux disease. Neurologist is on the case. Sleep specialist on the case. According to sleep specialist, she is to continue positive airway pressure at bedtime. Sleep apnea precautions. Dr. Rodríguez added Lovenox for deep vein thrombosis prophylaxis. The patient is getting gastric prophylaxis. Try to advance the diet but the patient is not tolerating. Discussion done with nursing staff. Actually today early in the morning according to the patient he has double vision, gastroesophageal reflux disease, and dyspepsia. Neurology workup is in the process, waiting for neurologist input. According to GI, no indication of endoscopy and colonoscopy right now. Continue PPI. Antiemetic p. r. n. The patient is on liquid diet try to advance diet, the patient is not tolerating. Out of bed physical therapy. We will follow up. Clarisa Cruz MD
[2018-07-16] MEDS: Pantoprazole 40 mg EC Tab PO SCH (06:24)
--- NOTE | 2018-07-16 08:09 | PN ---
DATE: 07/15/2018 IDENTIFICATION: A 52-year-old male. CHIEF COMPLAINT: Followup for dizziness. SUBJECTIVE: The patient is seen and examined at bedside, sitting in the chair, in no acute distress. Dizziness is much better, but had some vertiginous symptoms. MRI of the brain showed no acute intracranial abnormality. The patient will benefit from low-salt diet and outpatient vestibular therapy, likely it is more of vestibular neuritis. PAST MEDICAL HISTORY: Obstructive sleep apnea, did not require CPAP, GERD, and hypertension. REVIEW OF SYSTEMS: A 14-point review of system is negative except for the HPI. ALLERGIES: NO KNOWN DRUG ALLERGIES. FAMILY HISTORY: Noncontributory. SOCIAL HISTORY: No illicit drug abuse, smoking, or drug abuse. MEDICATIONS: Reviewed by nurses' reconciliation sheet. LABORATORY DATA: Sodium 140, potassium 4, chloride 104, carbon dioxide 28, BUN of 15, creatinine 1, and random glucose is 116. PHYSICAL EXAMINATION: GENERAL: The patient is sitting up in the chair, in no acute distress. VITAL SIGNS: Temperature 98.3, pulse rate of 79, blood pressure 126/78, respiratory rate 20, and oxygen saturation 97% on room air. HEENT: Atraumatic and normocephalic, PERRLA. Extraocular muscles are intact. NECK: Supple, no JVD and no adenopathy noted. LUNGS: Clear to auscultation. No adventitious sounds. HEART: S1, S2. Normal rate and rhythm. No murmurs, rubs or gallops. ABDOMEN: Soft, nontender, and nondistended. Bowel sounds are present. EXTREMITIES: No clubbing, no cyanosis. Peripheral pulses 2+ felt bilaterally. NEUROLOGIC: The patient is alert and oriented to person and place, month and year.. Cranial nerves II through XII are intact. Motor exam: Moves all extremities equally, . Sensory exam: Light touch, pinprick, proprioception intact. DTRs are 2+. Coordination, finger-nose intact. No dysmetria noted. Gait is deferred for now. IMPRESSION: Dizziness with more of a positional vertigo with underlying vestibular neuritis, superimposed on underlying sleep apnea syndrome. PLAN: At this time, recommend: 1. Use CPAP daily at night. 2. Salt restriction in diet. 3. Avoid sudden movements. 4. Outpatient vestibular therapy. 5. Continue meclizine 25 mg p.o. t.i.d. for acute onset of dizziness and continue . Thank you for this followup. Follow up with me as outpatient. Wagner Nicole MD
[2018-07-16] MEDS: Enoxaparin 40 mg Syringe SC SCH (11:03)
--- NOTE | 2018-07-16 12:04 | PN ---
DATE: 07/16/2018 PULMONARY PROGRESS NOTE REFERRING PHYSICIAN: Clarisa Cruz MD SUBJECTIVE: The patient is sitting up in bed. No acute distress. Reports that he still has some dizziness and diplopia, worsening in the morning. No headache, rhinitis, cough, shortness of breath, chest pain, abdominal pain, nausea, vomiting, diarrhea, leg pain or leg swelling reported. The patient use CPAP machine last night. OBJECTIVE: GENERAL: No acute distress. VITAL SIGNS: Blood pressure 136/88, pulse 58, temperature 97.5 and oxygen saturation 100%. HEENT: Moist mucous membranes. Mallampati score of 4. Crowded airway. NECK: Supple. No JVD. LUNGS: Fair airflow bilaterally. CARDIOVASCULAR: S1, S2. ABDOMEN: Soft and nontender. No distension. No organomegaly. EXTREMITIES: No bilateral lower extremity edema. NEUROLOGIC: Awake, alert, and verbal. Follows commands. MEDICATIONS: Reviewed. Dextrose 5%, sodium chloride 0.9% 1000 mL at 50 mL per hour, Valium 5 mg 3 times a day p.r.n., Lovenox 40 mg subcutaneously daily, Pepcid 40 mg at bedtime, hydrochlorothiazide 12.5 mg daily, Cozaar 50 mg daily, meclizine 25 mg 3 times a day, Zofran 4 mg IV push every 6 hours p.r.n., Protonix 40 mg daily, and prednisone 20 mg 3 times a day. LABORATORY DATA: Reviewed. No new labs since yesterday. IMPRESSION AND PLAN: Vertigo, possible vestibular neuritis, sleep apnea syndrome, hypertension, gastroesophageal reflux disease. Neurology note appreciated. The patient to have outpatient vestibular therapy. Continue continuous positive airway pressure use at bedtime, sleep apnea precaution, head of bed elevated at 45 degrees. Continue deep venous thrombosis prophylaxis, fall precautions, and gastric prophylaxis. Continue advance diet as tolerated. This patient is seen and examined with Dr. Rodríguez. Discussed assessment and plan as described above. This patient is seen and examined with Jonathan Eldridge, nurse practitioner. Discussed assessment and plan as described above. Thank you for this consult. We will follow with you. Jonathan Eldridge APN Ronnie Rodríguez MD
--- NOTE | 2018-07-17 02:31 | PN ---
DATE: 07/16/2018 SUBJECTIVE: This is a 52-year-old male. The patient was seen and examined at the bedside on 07/16/2018. Looking comfortable. No fever. No chills. No hematuria. No hematochezia. No swelling of the legs. No chest pain. No palpitation. Now, stiffness is better. Still dizzy when he is changing his position. PHYSICAL EXAMINATION: VITAL SIGNS: Blood pressure 133/88, pulse 58, temperature 97.5, oxygen saturation 100%. HEENT: Head: Normocephalic and atraumatic. Eyes: PERRLA. Extraocular muscles intact. Conjunctivae clear. Nose patent. NECK: Supple. No carotid bruits. No JVD or thyromegaly. CHEST: Bilaterally symmetrical. HEART: S1 and S2 positive. LUNGS: Clear to auscultation. ABDOMEN: Soft. Bowel sounds present. No organomegaly. EXTREMITIES: No edema. No cyanosis. NEUROLOGIC: The patient is awake and alert. Moving all four extremities. No focal deficits. MEDICATIONS: Dextrose, Valium, Lovenox, Protonix, hydrochlorothiazide, Cozaar, meclizine, Zofran, and prednisone. LABORATORY DATA: We do not have recent labs today, but I have reviewed old labs. ASSESSMENT AND PLAN: Mr. Kathy Acosta is a 52-year-old male who came in with vertigo, possibly vestibular neuritis, sleep apnea syndrome, using continuous positive airway pressure, hypertension, gastroesophageal reflux disease. Neurologist, Ears, Nose and Throat, and television receiver analyzer are on the case. The patient needs vestibular therapy. Continue positive air pressure use at bedtime as sleep apnea precaution. Length of time discussion done with the patient and the patient's nursing staff. Gastrointestinal and deep venous thrombosis prophylaxis provided. Appreciated Dr. Wagner Nicole's input. Gastroesophageal reflux disease and dyspepsia. Salt restriction diet. Avoid sudden movements. Continue meclizine. Gastrointestinal and deep venous thrombosis prophylaxis. Repeat labs. We will follow up. Clarisa Cruz MD
[2018-07-17] MEDS: Pantoprazole 40 mg EC Tab PO SCH (06:21)
[2018-07-17] MEDS: Dextrose 5%/0.9% NS 1,000 ML IV SCH (07:30)
[2018-07-17] MEDS: Enoxaparin 40 mg Syringe SC SCH (09:01)
--- NOTE | 2018-07-17 14:46 | PN ---
DATE: 07/17/2018 PULMONARY PROGRESS NOTE REFERRING PHYSICIAN: Clarisa Cruz MD SUBJECTIVE: The patient is sitting in arm chair in room. No acute distress. No overnight events reported. The patient is eating lunch at this time and tolerating advanced diet well. Reports he still gets dizzy at times. No headache, rhinitis, cough, shortness of breath, chest pain, abdominal pain, nausea, vomiting, diarrhea, leg pain or leg swelling reported. Reported he was not able to use CPAP machine last night, but states he will use it tonight. OBJECTIVE: GENERAL: No acute distress. VITAL SIGNS: Blood pressure 121/87, pulse 60, temperature 98 and oxygen saturation 100% on room air. HEENT: Moist mucous membranes. Crowded airway. Mallampati score of 4. NECK: Supple. No JVD. LUNGS: Fair airflow bilaterally. CARDIOVASCULAR: S1, S2 audible. ABDOMEN: Soft and nontender. No distension. No organomegaly. EXTREMITIES: No bilateral lower extremity edema. NEUROLOGIC: Awake, alert, and verbal. Follows commands. MEDICATIONS: Reviewed. Valium 5 mg 3 times a day p.r.n., Lovenox 40 mg subcu daily, Pepcid 40 mg at bedtime, hydrochlorothiazide 12.5 mg daily, Cozaar 50 mg daily, Antivert 25 mg 3 times a day, Zofran 4 mg every 6 hours p.r.n. and Protonix 40 mg daily. LABORATORY DATA: Reviewed. No new labs since yesterday. IMPRESSION AND PLAN: Vertigo, possible vestibular neuritis, sleep apnea syndrome, hypertension, gastroesophageal reflux disease. The patient to have outpatient vestibular therapy. Continue continuous positive airway pressure use at bedtime, sleep apnea precaution, head of bed elevated at 45 degrees, deep venous thrombosis prophylaxis, gastric prophylaxis, fall precautions. Continue advance diet as tolerated. This patient was seen and examined with Dr. Rodríguez. Discussed assessment and plan as described above. This patient was seen and examined with Jonathan Eldridge, nurse practitioner. Discussed assessment and plan as described above. Thank you for this consult. We will follow with you. Jonathan Eldridge APN Ronnie Rodríguez MD [facility] # [id number] SHANIK[facility]
--- NOTE | 2018-07-18 01:10 | PN ---
DATE: 07/17/2018 SUBJECTIVE: Patient is a 52-year-old male. Patient is seen and examined at bedside on 07/17/2018, looking comfortable. No fever. No chills. No hematuria. No hematochezia. No headache. No dizziness. Nausea is better. He refused physical therapy, then started dizziness. PHYSICAL EXAMINATION: VITAL SIGNS: Blood pressure 120/87, pulse 60, temperature 98, respiratory rate 18, and oxygen saturation 100%. HEENT: Head is normocephalic and atraumatic. Eyes, PERRLA. Extraocular muscles intact. Conjunctivae clear. Nose patent. Mucous membrane moist. NECK: Supple. No carotid bruits. No thyromegaly. CHEST: Bilaterally symmetrical. HEART: S1 and S2 positive. LUNGS: Clear to auscultation. ABDOMEN: Soft. Bowel sounds positive. No organomegaly. EXTREMITIES: No edema. No cyanosis. NEUROLOGIC: Patient is awake and alert. Moving all 4 extremities. No focal deficits. MEDICATIONS: Valium, Lovenox, Pepcid, hydrochlorothiazide, Cozaar, Zofran, and Protonix. LABORATORY DATA: We do not have recent labs today, but I reviewed old labs. ASSESSMENT AND PLAN: Mr. Kathy Acosta is a 52-year-old male with vertigo, looks like vestibular neuritis, sleep apnea syndrome, hypertension, gastroesophageal reflux disease, need vestibular therapy. Continue positive airway pressure use at bedtime. Advanced diet today. Deep venous thrombosis and gastrointestinal prophylaxis. Reviewed Dr. Rodríguez's notes. Discussion done with patient's nurse, Reviewed Dr. Nicole's notes from 07/15/2018. Need to have physical therapy. We will decrease Valium. We will followup. Clarisa Cruz MD [facility]TD[facility]
[2018-07-18] MEDS: Pantoprazole 40 mg EC Tab PO SCH (05:00)
[2018-07-18 06:07] VITALS: O2SAT 99
[2018-07-18 06:55] LABS: HEMOGLOBIN 15.5 g/dL (14.0-18.0); MEAN CELL VOLUME 90.2 fl (80.0-105.0); MEAN CORPUSCULAR HGB CONC 34.4 g/dl (31.0-37.0); MEAN PLATELET VOLUME 10.8 fl (7.0-11.0); RED CELL DISTRIBUTION WIDTH 13.3 % (11.5-14.5); WHITE BLOOD COUNT 9.5 10^3/uL (4.5-11.0)
[2018-07-18 07:11] LABS: BLOOD UREA NITROGEN 15 mg/dL (7-21); CALCIUM 9.2 mg/dL (8.4-10.5); GFR NON-AFRICAN AMERICAN > 60
[2018-07-18] MEDS: Enoxaparin 40 mg Syringe SC SCH (09:23)
--- NOTE | 2018-07-18 12:22 | PN ---
DATE: 07/18/2018 PULMONARY PROGRESS NOTE REFERRING PHYSICIAN: Clarisa Cruz MD SUBJECTIVE: The patient is sitting up in bed. No acute distress. No overnight events reported. Reports wearing CPAP machine for about 2 to 3 hours last night. Reports still getting dizzy and having diplopia in the morning. No headache, rhinitis, cough, shortness of breath, chest pain, abdominal pain, nausea, vomiting, diarrhea, leg pain, leg swelling reported. Reports he is tolerating advanced diet well. The patient reports that he ambulated yesterday and was having unsteady gait. OBJECTIVE: VITAL SIGNS: Blood pressure 134/80, pulse 60, temperature 98.6, oxygen saturation 99% on room air. GENERAL: No acute distress. HEENT: Moist mucous membranes. Crowded airway. Mallampati score of 4. NECK: Supple. No JVD. LUNGS: Fair airflow bilaterally. CARDIOVASCULAR: S1, S2 audible. ABDOMEN: Soft, nontender. No distention. No organomegaly. EXTREMITIES: No bilateral lower extremity edema. NEUROLOGIC: Awake, alert, and verbal. Follows commands. MEDICATIONS: Reviewed. Valium 10 mg three times a day p.r.n., Lovenox 40 mg subcu daily, Pepcid 40 mg at bedtime, hydrochlorothiazide 12.5 mg daily, Cozaar 50 mg daily, Antivert 25 mg three times a day, Zofran 4 mg IV push every 6 hours p.r.n., Protonix 40 mg daily. LABORATORY DATA: Reviewed. WBC 9.5, RBC 5, hemoglobin 15.5, hematocrit 45.1, platelets 226. Sodium 141, potassium 3.7, chloride 105, carbon dioxide 28, anion gap 11, BUN 15, creatinine 0.9. GFR greater than 60. Random glucose 95. Calcium 9.2. IMPRESSION AND PLAN: Vertigo, possible vestibular neuritis; sleep apnea syndrome; hypertension; gastroesophageal reflux disease. The patient to have outpatient vestibular therapy. Continue to encourage CPAP use at bedtime. Sleep apnea precaution. Head of bed elevated 45 degrees. Gastric prophylaxis. Deep venous thrombosis prophylaxis. Fall precautions. We will place order for TCU evaluation for continued rehabilitation, transfers. The patient was seen and examined with Dr. Rodríguez. Discussed the assessment and plan as described above. This patient was seen and examined with Jonathan Eldridge, nurse practitioner. Discussed assessment and plan as described above. Thank you for this consult. We will follow with you. Jonathan Eldridge APN Ronnie Rodríguez MD [facility]
[2018-07-18 12:44] VITALS: RESP 20
[2018-07-18 17:44] VITALS: BP 124/79; PULSE 67; TEMP 98.7
== END 2018-07-18 21:11 | disposition home or self-care (01) | DRG 149 ==
LOC: ED 21:44 → ERH 07-12 00:01 → 2RSO 07-12 01:35 → OBSVTOIN 07-13 17:53
PROVIDERS: ADMIT Internal Medicine; ATTEND Internal Medicine
PROC: 5A09457 Assistance with Respiratory Ventilation, 24-96 Consecutive Hours, Continuous Positive Airway Pressure (ICD-10-PCS; principal; 2018-07-14)
DX: H81.23 Vestibular neuronitis, bilateral (principal); J98.11 Atelectasis; H93.3X9 Disorders of unspecified acoustic nerve; I10 Essential (primary) hypertension; E87.6 Hypokalemia; G47.33 Obstructive sleep apnea (adult) (pediatric); R73.9 Hyperglycemia, unspecified; K21.9 Gastro-esophageal reflux disease without esophagitis; Z91.19 Patient's noncompliance with other medical treatment and regimen